=== PATIENT | male | born 1945 | race Caucasian/White ===

== ENCOUNTER 2020-06-19 12:42 | Observation (INO) ==
[2020-06-19] MEDS ORDERED: Isovue-370 500 ML BOTTLE IVP ONE (12:54)
[2020-06-19] MEDS ORDERED: 0.9 % Sodium Chloride 1,000 ML IV ONE (13:04)
[2020-06-19 13:51] LABS: Hemoglobin 14.6 g/dL (12.9-16.9); Mean Corpuscular HGB Conc 33.2 g/dL (31.6-35.5); Mean Corpuscular Volume 96.5 fL (83.0-100.0); Mean Platelet Volume 10.5 fL (9.4-12.4); Platelet Count 228 K/mcL (140-400); Red Blood Count 4.56 M/mcL (4.19-5.50); Red Cell Distribution Width 12.6 % (11.5-14.5); White Blood Count 5.4 K/mcL (4.3-11.1)
[2020-06-19 14:02] LABS: Bilirubin,Urine Negative (Negative); Blood,Urine Negative (Negative); Clarity,Urine Clear (Clear); Color,Urine Light-Yellow (Yellow); Glucose,Urine (UA) Normal (Normal); Ketones,Urine Negative (Negative); Leukocyte Esterase,Urine Negative (Negative); Nitrite,Urine Negative (Negative); PH,Urine 6.5 pH Units (5.0-8.0); Protein,Urine Negative (Neg-Trace); Specific Gravity,Urine 1.017 (1.010-1.025)
[2020-06-19 14:10] LABS: BUN/Creatinine Ratio 14 (6-26); Blood Urea Nitrogen 22 mg/dL (8-23); Carbon Dioxide 28 mEq/L (23-29); Chloride 101 mEq/L (98-107); Glucose 124 mg/dL (70-105); Osmolality,Calculated 289 (280-300); Potassium 3.7 mEq/L (3.5-5.1); Sodium 137 mEq/L (136-145); Troponin I < 0.03 ng/mL (< 0.04); eGFR For African Americans 53 (> 60); eGFR For Non-African Americans 44 (> 60)
[2020-06-19] MEDS ORDERED: Naloxone 0.4 MG/ML INJ IVP PRN (17:48)
[2020-06-19] MEDS ORDERED: Acetaminophen 325 MG TABLET PO PRN (17:48)
[2020-06-19] MEDS ORDERED: Perflutren Lipid Microsphere 1.3 ML in 0.9 % Sodium Chloride 8.7 ML IVP PRN (18:20)
[2020-06-19] MEDS ORDERED: *HR* OxyCODONE/APAP 5/325 TABLET PO PRN (18:21)
[2020-06-19] MEDS ORDERED: 0.9 % Sodium Chloride 1,000 ML IVC SCH (18:45)
[2020-06-19] MEDS: ALPRAZolam 0.5 MG TABLET PO SCH (21:07)
[2020-06-20 04:00] LABS: Calcium 8.3 mg/dL (8.6-10.3); Chol/HDL Ratio 4.3 (0-4.9); Potassium 3.5 mEq/L (3.5-5.1)
[2020-06-20] MEDS: ALPRAZolam 0.5 MG TABLET PO SCH (08:17)
[2020-06-20] MEDS ORDERED: Aspirin Enteric Coated 81 MG Tablet PO SCH (09:00)
[2020-06-20] MEDS ORDERED: Celecoxib 200 MG CAPSULE PO SCH (09:00)
[2020-06-20] MEDS ORDERED: amLODIPine 5 MG TABLET PO SCH (09:00)
[2020-06-20] MEDS ORDERED: (Mirabegron [Myrbetriq] 25 MG Tab.Er.24h) PO SCH (09:00)
[2020-06-20] MEDS ORDERED: Losartan/HCTZ 50-12.5 TABLET PO SCH (09:00)
[2020-06-20 15:15] VITALS: BP 135/72
== END 2020-06-20 18:57 | disposition home or self-care (01) ==
LOC: EMEROOARM 12:42 → 3BNU 12:42 → SUATTDRO 17:13 → 3BNU 17:53
PROVIDERS: ADMIT Internal Medicine; ATTEND Student in an Organized Health Care Education/Training Program